=== PATIENT | female | born 1980 ===

== ENCOUNTER 2025-02-04 10:45 | Inpatient (IN) | payer OTHER ==
[~2025-02-04] VITALS: Ht 121.9 cm; Wt 108.9 kg
[2025-02-10] MEDS ORDERED: METRONIDAZOLE/SODIUM CHLORIDE 500 MG/100 ML PIGGYBACK IV ONE (09:22)
[2025-02-10] MEDS ORDERED: levoFLOXacin IN DEXTROSE 5 % 5 MG/ML PIGGYBAG IV ONE (09:22)
[2025-02-10] MEDS ORDERED: POVIDONE-IODINE 118 ML BOTT TOP ONE (09:23)
[2025-02-10] MEDS ORDERED: HEMOSTATIC MATRIX 1 KIT KIT TOP ONE (09:57)
[2025-02-10] MEDS ORDERED: LIDOCAINE HCL 1%/EPINEPHRINE 20ML VIAL IJ ONE (10:20)
[2025-02-10] MEDS ORDERED: DIBUCAINE 30 GM TUBE ONE (11:09)
[2025-02-10] MEDS ORDERED: MORPHINE SULFATE 4 MG/ML CARTRIDGE IV PRN (12:30)
[2025-02-10] MEDS ORDERED: RINGERS SOLUTION,LACTATED 1,000 ML IV SCH (12:30)
[2025-02-10] MEDS ORDERED: OxyCODONE HCL 5 MG TABLET (ROXICODONE) PO PRN (12:30)
[2025-02-10] MEDS ORDERED: ONDANSETRON HCL 2 MG/ML VIAL IV PRN (12:30)
[2025-02-10] MEDS ORDERED: ACETAMINOPHEN 500 MG GEL..CAP PO SCH (14:00)
[2025-02-10] MEDS ORDERED: ACETAMINOPHEN 500 MG GEL..CAP PO ONE (14:03)
[2025-02-10 16:35] VITALS: BP 114/71; O2SAT 95
[2025-02-10] MEDS ORDERED: HYOSCYAMINE SULFATE 0.125 MG TAB.SUBL SL SCH (17:00)
[2025-02-10] MEDS ORDERED: FAMOTIDINE/PF 20 MG/2 ML VIAL IV PUSH SCH (21:00)
[2025-02-11 01:00] VITALS: BP 100/67; O2SAT 98
[2025-02-11 06:33] LABS: HEMATOCRIT 38.4 % (36.0-45.00); MEAN CELL VOLUME 88.7 fL (80.00-100.00); MEAN CORPUSCULAR HGB CONC 33.8 g/dl (32.0-36.0); PLATELET COUNT 255 K/uL (150-450); RED BLOOD COUNT 4.33 M/uL (4.00-6.00)
[2025-02-11 06:38] LABS: ALBUMIN 3.1 gm/dL (3.4-5.0); CALCIUM 8.6 mg/dL (8.5-10.1); CREATININE SERUM 0.6 mg/dL (0.55-1.02); GFR 107.62; MAGNESIUM 1.9 mg/dL (1.8-2.4); PHOSPHOROUS 3.1 mg/dL (2.5-4.9); POTASSIUM 4.07 mEq/L (3.5-5.1)
[2025-02-11] MEDS ORDERED: ANUSOL-HC30 G2 TOP (08:14)
[2025-02-11] MEDS ORDERED: INTESTINEX680 M1 PO (08:14)
[2025-02-11 08:50] VITALS: BP 110/76; O2SAT 95
[2025-02-11] MEDS ORDERED: LACTOBACILLUS ACIDOPHILUS 1 CAP CAP PO SCH (09:00)
== END 2025-02-11 13:41 | disposition home or self-care (01) | DRG 376 ==
LOC: SURH 10:45 → O/R 02-10 06:27 → SURH 02-10 06:27
PROVIDERS: ADMIT Surgery; ATTEND Surgery
PROC: 3E0T3BZ Introduction of Anesthetic Agent into Peripheral Nerves and Plexi, Percutaneous Approach (ICD-10-PCS; 2025-02-10)
PROC: 0DBP8ZZ Excision of Rectum, Via Natural or Artificial Opening Endoscopic (ICD-10-PCS; principal; 2025-02-10 15:15)
DX: C20 Malignant neoplasm of rectum (principal); K64.8 Other hemorrhoids; Z83.710 Family history of adenomatous and serrated polyps; Z80.0 Family history of malignant neoplasm of digestive organs; R73.01 Impaired fasting glucose; E66.01 Morbid (severe) obesity due to excess calories
CPT/HCPCS: 0184T; 64430